=== PATIENT | female | born 2000 | race Caucasian/White ===

== ENCOUNTER 2020-08-13 10:05 | Inpatient (IN) | payer OTHER ==
[2020-08-13] MEDS ORDERED: PROMETHAZINE HCL 25 MG/1 ML VIAL IVPUSH ONE (11:06)
[2020-08-13] MEDS ORDERED: SODIUM PHOSPHATE/NA BIPHOS 133 ML ENEMA RC ONE (11:09)
[2020-08-13] MEDS ORDERED: DEXTROSE 5%-LACTATED RINGERS 1,000 ML IV SCH (11:15)
[2020-08-13] MEDS ORDERED: BUTORPHANOL TARTRATE 2 MG/ML VIAL IVPB ONE (11:30)
[2020-08-13] MEDS ORDERED: DINOPROSTONE 10 MG VAGINAL SUPPOSITORY VG ONE (11:30)
[2020-08-13 11:55] VITALS: BMI 38.4
[2020-08-13 12:54] LABS: BASO % 0.7 % (0-2.0); EOS % 2.3 % (0-4.5); HEMATOCRIT 30.7 % (32.4-45.2); HEMOGLOBIN 9.9 GM/dL (10.7-15.3); LYMPH % 13.9 % (8-40); MCH 23.4 pg (25.7-33.7); MCHC 32.4 g/dl (32.0-36.0); MEAN CELL VOLUME 72.2 fl (80-96); MEAN PLT VOLUME 10.8 fl (7.5-11.1); MONO % 4.9 % (3.8-10.2); NEUT % 78.2 % (42.8-82.8); PLATELET COUNT 209 K/MM3 (134-434); RBC 4.24 M/mm3 (3.60-5.2); RDW 18.5 % (11.6-15.6); WHITE BLOOD COUNT 9.8 K/mm3 (4.0-10.0)
[2020-08-13 13:04] LABS: INR 0.91 (0.83-1.09); PROTHROMBIN TIME (PATIENT) 11.1 SEC (9.7-13.0)
[2020-08-13 13:06] LABS: ACTIVATED PTT 25.1 SECONDS (25.2-36.5)
[2020-08-13 13:17] LABS: POTASSIUM 4.1 mmol/L (3.5-5.1)
[2020-08-13 13:18] LABS: CALCIUM 8.5 mg/dL (8.5-10.1)
[2020-08-13 13:22] LABS: CREATININE 0.5 mg/dL (0.55-1.3)
[2020-08-13] MEDS ORDERED: ELECTROLYTE-148 SOLN 1,000 ML IV SCH (18:00)
[2020-08-13] MEDS ORDERED: BUTORPHANOL TARTRATE 2 MG/ML VIAL ONE (19:16)
[2020-08-13] MEDS ORDERED: PROMETHAZINE HCL 25 MG/1 ML VIAL ONE (19:17)
[2020-08-13] MEDS ORDERED: FENTANYL/BUPIVACAINE/NS/PF - PCEA - 50 ML DISP.SYRIN EP ONE (20:39)
[2020-08-13] MEDS ORDERED: PCA PUMP NR ONE (20:40)
[2020-08-13] MEDS ORDERED: BUPIVACAINE HCL/PF 0.25% (2.5MG/ML) 10 ML VIAL ONE ×2 (20:50→21:46)
[2020-08-13] MEDS ORDERED: NALOXONE HCL 0.4 MG/ML VIAL IVPUSH PRN (21:19)
[2020-08-13] MEDS ORDERED: FENTANYL/BUPIVACAINE/NS/PF - PCEA - 50 ML DISP.SYRIN EP SCH (21:30)
[2020-08-13] MEDS ORDERED: LIDOCAINE HCL 1% PRESERVATIVE FREE - 30ML VIAL ONE (22:42)
[2020-08-13] MEDS ORDERED: OXYTOCIN 20 UNITS in 0.9% NS 20 UNIT/1,000 ML INFUS.BAG IV ONE (22:42)
[2020-08-14] MEDS ORDERED: BENZOCAINE 20% 57 GM BOTTLE TP PRN (00:10)
[2020-08-14] MEDS ORDERED: BENZOCAINE 28 GM HEMORRHOIDAL OINTMENT TP PRN (00:10)
[2020-08-14] MEDS ORDERED: WITCH HAZEL 50% (TUCKS) 40 PAD/JAR PAD TP PRN (00:10)
[2020-08-14] MEDS ORDERED: METHYLERGONOVINE MALEATE 0.2 MG/1 ML AMP IM PRN (00:10)
[2020-08-14] MEDS ORDERED: BISACODYL 10 MG SUPP.RECT RC PRN (00:10)
[2020-08-14] MEDS ORDERED: OXYTOCIN 20 UNITS in 0.9% NS 20 UNIT/1,000 ML INFUS.BAG IV SCH (00:15)
[2020-08-14] MEDS ORDERED: OXYTOCIN 20 UNITS in 0.9% NS 20 UNIT/1,000 ML INFUS.BAG IV ONE (00:32)
[2020-08-14] MEDS: FERROUS SO4 325 MG TABLET (FP) PO SCH ×2 (08:56→21:44)
[2020-08-14] MEDS: ACETAMINOPHEN 325 MG TABLET (FP) PO PRN ×2 (08:56→21:43)
[2020-08-14] MEDS: IBUPROFEN 600 MG TABLET (FP) PO PRN ×2 (08:57→21:42)
[2020-08-14 09:12] LABS: BASO % 0.1 % (0-2.0); EOS % 0.1 % (0-4.5); HEMATOCRIT 30.9 % (32.4-45.2); HEMOGLOBIN 9.9 GM/dL (10.7-15.3); LYMPH % 8.7 % (8-40); MCH 23.1 pg (25.7-33.7); MCHC 32.1 g/dl (32.0-36.0); MEAN PLT VOLUME 10.3 fl (7.5-11.1); MONO % 4.8 % (3.8-10.2); NEUT % 86.3 % (42.8-82.8); PLATELET COUNT 232 K/MM3 (134-434); RBC 4.29 M/mm3 (3.60-5.2); RDW 19.3 % (11.6-15.6); WHITE BLOOD COUNT 19.6 K/mm3 (4.0-10.0)
[2020-08-14] MEDS ORDERED: PRENATAL VITAMINS W/ FOLIC ACID TABLET (FP) PO SCH (10:00)
[2020-08-15] MEDS: FERROUS SO4 325 MG TABLET (FP) PO SCH (08:53)
[2020-08-15 16:17] VITALS: BP 110/71; PULSE 90; TEMP 97.6
[2020-08-15] MEDS ORDERED: SENNOSIDES/DOCUSATE COMBO (SENNA PLUS) TABLET (UD) PO PRN (22:00)
== END 2020-08-15 14:25 | disposition home or self-care (01) | DRG 560 ==
LOC: JLDR 10:05 → J3W 08-14 02:23
PROVIDERS: ADMIT Obstetrics & Gynecology; ATTEND Obstetrics & Gynecology
PROC: 10E0XZZ Delivery of Products of Conception, External Approach (ICD-10-PCS; principal; 2020-08-13)
PROC: 0HQ9XZZ Repair Perineum Skin, External Approach (ICD-10-PCS; 2020-08-13)
PROC: 0W8NXZZ Division of Female Perineum, External Approach (ICD-10-PCS; 2020-08-13)
PROC: 3E0P7VZ Introduction of Hormone into Female Reproductive, Via Natural or Artificial Opening (ICD-10-PCS; 2020-08-13)
DX: O70.0 First degree perineal laceration during delivery (principal); O48.0 Post-term pregnancy; O99.213 Obesity complicating pregnancy, third trimester; O99.013 Anemia complicating pregnancy, third trimester; Z3A.40 40 weeks gestation of pregnancy; O69.1XX0 Labor and delivery complicated by cord around neck, with compression, not applicable or unspecified; Z37.0 Single live birth
CPT/HCPCS: 36415; 59409; 80048; 85025; 85610; 85730; 86850; 86900; 86901; C9803; U0003

== ENCOUNTER 2022-10-24 07:27 | Inpatient (IN) | payer OTHER ==
[2022-10-24] MEDS: ELECTROLYTE-148 SOLN 1,000 ML IV SCH ×2 (08:30→15:48)
[2022-10-24] MEDS ORDERED: DINOPROSTONE 10 MG VAGINAL SUPPOSITORY VG ONE (09:00)
[2022-10-24 09:33] VITALS: BMI 36.7
[2022-10-24 10:05] LABS: BASO % 0.5 % (0-2.0); EOS % 1.9 % (0-4.5); HEMATOCRIT 30.9 % (32.4-45.2); LYMPH % 15.5 % (8-40); MCH 22.6 pg (25.7-33.7); MCHC 32.3 g/dl (32.0-36.0); MEAN CELL VOLUME 69.9 fl (80-96); MEAN PLT VOLUME 9.4 fl (7.5-11.1); MONO % 4.4 % (3.8-10.2); NEUT % 77.7 % (42.8-82.8); PLATELET COUNT 221 10^3/uL (134-434); RBC 4.42 M/mm3 (3.60-5.2); RDW 19.2 % (11.6-15.6); WHITE BLOOD COUNT 10.9 K/mm3 (4.0-10.0)
[2022-10-24 10:11] LABS: INR 0.99 (0.83-1.09); PROTHROMBIN TIME (PATIENT) 11.5 SEC (9.7-13.0)
[2022-10-24 10:31] LABS: CALCIUM 8.5 mg/dL (8.5-10.1)
[2022-10-24 10:32] LABS: BLOOD UREA NITROGEN 6.9 mg/dL (7-18)
[2022-10-24 10:35] LABS: CREATININE 0.4 mg/dL (0.55-1.3)
[2022-10-24] MEDS ORDERED: PROMETHAZINE HCL 25 MG/1 ML VIAL IVPB ONE (22:14)
[2022-10-24] MEDS ORDERED: BUTORPHANOL TARTRATE 1 MG/ML VIAL IVPB ONE (22:14)
[2022-10-24] MEDS ORDERED: BUTORPHANOL TARTRATE 2 MG/ML VIAL ONE (22:19)
[2022-10-24] MEDS ORDERED: PROMETHAZINE HCL 25 MG/1 ML VIAL ONE (22:19)
[2022-10-25] MEDS ORDERED: OXYTOCIN 30 UNITS in 0.9% NS 30 UNIT/500 ML INFUS.BAG IVPB ONE (01:10)
[2022-10-25] MEDS ORDERED: OXYTOCIN 30 UNITS in 0.9% NS 30 UNIT/500 ML INFUS.BAG IVPB SCH (01:15)
[2022-10-25] MEDS ORDERED: FENTANYL/BUPIVACAINE/NS/PF - PCEA - 50 ML DISP.SYRIN EP ONE (05:37)
[2022-10-25] MEDS ORDERED: LIDOCAINE HCL 1% PRESERVATIVE FREE - 30ML VIAL ONE (06:03)
[2022-10-25] MEDS ORDERED: OXYTOCIN 20 UNITS in 0.9% NS 20 UNIT/1,000 ML INFUS.BAG IV ONE (06:03)
[2022-10-25] MEDS ORDERED: WITCH HAZEL 50% (TUCKS) 40 PAD/JAR PAD TP PRN (06:18)
[2022-10-25] MEDS ORDERED: BENZOCAINE 28 GM HEMORRHOIDAL OINTMENT TP PRN (06:18)
[2022-10-25] MEDS ORDERED: ACETAMINOPHEN 325 MG TABLET (FP) PO PRN (06:18)
[2022-10-25] MEDS ORDERED: BISACODYL 10 MG SUPP.RECT RC PRN (06:18)
[2022-10-25] MEDS ORDERED: OXYTOCIN 20 UNITS in 0.9% NS 20 UNIT/1,000 ML INFUS.BAG IV SCH (06:30)
[2022-10-25 06:47] LABS: CORD HCO3 22.3 mmHg (20-29); CORD PCO2 45.4 mmHg (30-78); CORD pH 7.309 (7.14-7.44)
[2022-10-25] MEDS ORDERED: ACETAMINOPHEN 325 MG TABLET (FP) ONE (07:14)
[2022-10-25 09:41] VITALS: RESP 18
[2022-10-25] MEDS: IBUPROFEN 600 MG TABLET (FP) PO PRN (21:38)
[2022-10-26] MEDS: IBUPROFEN 600 MG TABLET (FP) PO PRN ×2 (08:23→18:44)
[2022-10-26 08:38] LABS: EOS % 3.1 % (0-4.5); HEMATOCRIT 27.7 % (32.4-45.2); HEMOGLOBIN 8.9 GM/dL (10.7-15.3); LYMPH % 18.3 % (8-40); MCH 22.4 pg (25.7-33.7); MCHC 32.1 g/dl (32.0-36.0); MEAN CELL VOLUME 69.8 fl (80-96); MEAN PLT VOLUME 9.4 fl (7.5-11.1); NEUT % 72.6 % (42.8-82.8); PLATELET COUNT 200 10^3/uL (134-434); RBC 3.96 M/mm3 (3.60-5.2); RDW 19.7 % (11.6-15.6); WHITE BLOOD COUNT 10.1 K/mm3 (4.0-10.0)
[2022-10-26] MEDS ORDERED: SENNOSIDES/DOCUSATE COMBO (SENNA PLUS) TABLET (UD) PO PRN (22:00)
[2022-10-27] MEDS: IBUPROFEN 600 MG TABLET (FP) PO PRN (05:14)
[2022-10-27 09:25] VITALS: BP 115/65; PULSE 90; TEMP 97.8
== END 2022-10-27 13:12 | disposition home or self-care (01) | DRG 560 ==
LOC: JLDR 07:27 → J3W 10-25 08:30
PROVIDERS: ADMIT Student in an Organized Health Care Education/Training Program; ATTEND Student in an Organized Health Care Education/Training Program
PROC: 3E0P7VZ Introduction of Hormone into Female Reproductive, Via Natural or Artificial Opening (ICD-10-PCS; 2022-10-24)
PROC: 10E0XZZ Delivery of Products of Conception, External Approach (ICD-10-PCS; principal; 2022-10-25)
DX: O36.5930 Maternal care for other known or suspected poor fetal growth, third trimester, not applicable or unspecified (principal); O69.81X0 Labor and delivery complicated by cord around neck, without compression, not applicable or unspecified; O99.214 Obesity complicating childbirth; E66.9 Obesity, unspecified; O99.02 Anemia complicating childbirth; D64.9 Anemia, unspecified; Z3A.40 40 weeks gestation of pregnancy; Z37.0 Single live birth
CPT/HCPCS: 36415; 36600; 59409; 80048; 82803; 85025; 85610; 85730; 86780; 86850; 86900; 86901; C9803-CS; U0003; U0005

== ENCOUNTER 2023-02-07 21:35 | Emergency (ER) | payer OTHER ==
[2023-02-07 21:43] VITALS: BP 137/78; RESP 18; TEMP 98.5; BMI 34.2
[2023-02-07] MEDS ORDERED: ONDANSETRON 4 MG/2 ML VIAL IVPUSH ONE (23:13)
[2023-02-07] MEDS ORDERED: LACTATED RINGERS SOLUTION 1,000 ML/1,000 ML INFUS.BAG IV SCH (23:15)
[2023-02-07] MEDS ORDERED: ONDANSETRON 4 MG/2 ML VIAL ONE (23:25)
[2023-02-07 23:33] LABS: URINE APPEARANCE CLOUDY; URINE BILIRUBIN NEGATIVE (NEGATIVE); URINE COLOR YELLOW; URINE GLUCOSE (UA) NEGATIVE (NEGATIVE); URINE KETONE NEGATIVE (NEGATIVE); URINE LEUK ESTERASE NEGATIVE (NEGATIVE); URINE NITRITE NEGATIVE (NEGATIVE); URINE PROTEIN NEGATIVE (NEGATIVE)
[2023-02-07 23:37] LABS: HCG,QUALITATIVE URINE Negative
[2023-02-08 01:07] VITALS: PULSE 90
== END 2023-02-08 01:07 | disposition home or self-care (01) ==
LOC: JER 21:35
PROC: 3E033NZ Introduction of Analgesics, Hypnotics, Sedatives into Peripheral Vein, Percutaneous Approach (ICD-10-PCS; principal; 2023-02-07)
DX: R11.2 Nausea with vomiting, unspecified (principal); R10.30 Lower abdominal pain, unspecified
CPT/HCPCS: 81003; 84703; 99284-25

== ENCOUNTER 2024-09-04 05:25 | Inpatient (IN) | payer OTHER ==
[2024-09-04] MEDS: ELECTROLYTE-148 SOLN 1,000 ML IV SCH (06:05)
[2024-09-04] MEDS ORDERED: OXYTOCIN 20 UNITS in 0.9% NS 20 UNIT/1,000 ML INFUS.BAG IV ONE (06:22)
[2024-09-04] MEDS ORDERED: LIDOCAINE HCL 1% PRESERVATIVE FREE - 30ML VIAL ONE (06:22)
[2024-09-04] MEDS: OXYTOCIN 20 UNITS in 0.9% NS 20 UNIT/1,000 ML INFUS.BAG IV SCH (06:26)
[2024-09-04] MEDS ORDERED: oxyCODONE HCL 5 MG TABLET PO PRN (06:42)
[2024-09-04] MEDS ORDERED: BENZOCAINE 20% 57 GM BOTTLE TP PRN (06:42)
[2024-09-04] MEDS ORDERED: BISACODYL 10 MG SUPP.RECT RC PRN (06:42)
[2024-09-04] MEDS ORDERED: BENZOCAINE 28 GM HEMORRHOIDAL OINTMENT TP PRN (06:42)
[2024-09-04] MEDS ORDERED: WITCH HAZEL 50% (TUCKS) 40 PAD/JAR PAD TP PRN (06:42)
[2024-09-04] MEDS ORDERED: METHYLERGONOVINE MALEATE 0.2 MG/1 ML AMP IM PRN (06:42)
[2024-09-04 06:44] LABS: BASO % 0.5 % (0-2.0); EOS % 1.7 % (0-4.5); HEMATOCRIT 33.9 % (32.4-45.2); HEMOGLOBIN 10.5 GM/dL (10.7-15.3); LYMPH % 14.8 % (8-40); MCH 21.7 pg (25.7-33.7); MCHC 30.9 g/dl (32.0-36.0); MEAN CELL VOLUME 70.2 fl (80-96); MEAN PLT VOLUME 9.6 fl (7.5-11.1); PLATELET COUNT 248 10^3/uL (134-434); RBC 4.83 M/mm3 (3.60-5.2); RDW 20.3 % (11.6-15.6); WHITE BLOOD COUNT 11.4 K/mm3 (4.0-10.0)
[2024-09-04] MEDS ORDERED: IBUPROFEN 600 MG TABLET (FP) PO ONE (06:45)
[2024-09-04] MEDS: IBUPROFEN 600 MG TABLET (FP) PO PRN (06:50)
[2024-09-04 06:53] VITALS: BMI 35.6
[2024-09-04 06:55] LABS: POTASSIUM 4.4 mmol/L (3.5-5.1)
[2024-09-04 06:57] LABS: BLOOD UREA NITROGEN 7.7 mg/dL (7-18); CALCIUM 9.2 mg/dL (8.5-10.1)
[2024-09-04 07:01] LABS: CREATININE 0.5 mg/dL (0.55-1.3)
[2024-09-04 07:17] LABS: INR 0.95 (0.83-1.09); PROTHROMBIN TIME (PATIENT) 10.8 SEC (9.7-13.0)
[2024-09-04 07:20] LABS: ACTIVATED PTT 25.6 SECONDS (25.2-36.5)
[2024-09-04 07:31] LABS: CORD HCO3 23.3 mmHg (20-29); CORD PCO2 63.5 mmHg (30-78); CORD pH 7.183 (7.14-7.44)
[2024-09-04 07:33] LABS: CORD BASE EXCESS -5.4 mmol/L (0-2); CORD HCO3 20.4 mmHg (20-29); CORD PCO2 40.8 mmHg (30-78); CORD pH 7.316 (7.14-7.44)
[2024-09-04 08:52] LABS: ANISOCYTOSIS 1+; MACROCYTOSIS 0
[2024-09-04] MEDS: ACETAMINOPHEN 325 MG TABLET (FP) PO PRN (11:00)
[2024-09-04 18:07] VITALS: RESP 18
[2024-09-05 07:21] LABS: BASO % 0.7 % (0-2.0); HEMATOCRIT 26.8 % (32.4-45.2); HEMOGLOBIN 8.4 GM/dL (10.7-15.3); MCH 22.1 pg (25.7-33.7); MCHC 31.5 g/dl (32.0-36.0); MEAN CELL VOLUME 70.2 fl (80-96); MEAN PLT VOLUME 9.4 fl (7.5-11.1); MONO % 5.4 % (3.8-10.2); NEUT % 69.9 % (42.8-82.8); PLATELET COUNT 207 10^3/uL (134-434); RBC 3.81 M/mm3 (3.60-5.2); RDW 19.9 % (11.6-15.6); WHITE BLOOD COUNT 9.7 K/mm3 (4.0-10.0)
[2024-09-05] MEDS ORDERED: SENNOSIDES/DOCUSATE COMBO (SENNA PLUS) TABLET (UD) PO PRN (22:00)
[2024-09-06 10:35] VITALS: BP 114/75; PULSE 80; TEMP 98
== END 2024-09-06 14:30 | disposition home or self-care (01) | DRG 560 ==
LOC: JDEL 05:25 → JLDR 06:00 → J3W 08:40
PROVIDERS: ADMIT Obstetrics & Gynecology; ATTEND Obstetrics & Gynecology
PROC: 10E0XZZ Delivery of Products of Conception, External Approach (ICD-10-PCS; principal; 2024-09-04)
DX: O48.0 Post-term pregnancy (principal); Z3A.40 40 weeks gestation of pregnancy; O69.81X0 Labor and delivery complicated by cord around neck, without compression, not applicable or unspecified; Z37.0 Single live birth
CPT/HCPCS: 36415; 36600; 59409; 80048; 82803; 85025; 85610; 85730; 86780; 86850; 86900; 86901

== ENCOUNTER 2025-04-08 06:10 | Day surgery (SDC) | payer OTHER ==
[2025-04-06 11:52] VITALS: BMI 31.7
[2025-04-08] MEDS ORDERED: MIDAZOLAM HCL 2 MG/2 ML SINGLE DOSE VIAL ONE (07:51)
[2025-04-08] MEDS ORDERED: ROCURONIUM BROMIDE 50 MG/5 ML SYRINGE ONE ×2 (07:52→08:32)
[2025-04-08] MEDS ORDERED: SUCCINYLCHOLINE CHLORIDE 200 MG/10 ML SYRINGE ONE (07:52)
[2025-04-08] MEDS ORDERED: PROPOFOL 20 ML ONE ×2 (07:52→08:32)
[2025-04-08] MEDS: BUPIVACAINE HCL/PF 2.5 MG/ML - 30 ML VIAL IJ ONE (08:30)
[2025-04-08] MEDS ORDERED: SUGAMMADEX SODIUM 200 MG/2 ML VIAL ONE (08:50)
[2025-04-08 10:15] VITALS: PULSE 76
[2025-04-08 11:35] VITALS: BP 116/64; RESP 18; TEMP 97.6
== END 2025-04-08 11:42 | disposition home or self-care (01) ==
LOC: JASU-SURG 06:10
PROVIDERS: ATTEND Student in an Organized Health Care Education/Training Program
PROC: 0UT74ZZ Resection of Bilateral Fallopian Tubes, Percutaneous Endoscopic Approach (ICD-10-PCS; principal; 2025-04-08 08:00)
DX: Z30.2 Encounter for sterilization (principal)
CPT/HCPCS: 88305-TC; 94760